=== PATIENT | female | born 1965 | race Caucasian/White ===

== ENCOUNTER 2017-03-11 20:00 | Emergency (ER) | payer OTHER ==
[~2017-03-11] VITALS: Ht 160 cm; Wt 66.0 kg
[~2017-03-11 20:00] MED LIST: LISI-363 PO; METO25TA6 PO; NAPR500 PO; ROBA750T3 PO; Z.0.BCPILL PO; ZOCO20TA PO
[2017-03-11] MEDS ORDERED: SODIUM CHLORIDE 0.9% FLUSH 10 ML FLUSH IVF PRN (20:15)
[2017-03-11] MEDS ORDERED: SODIUM CHLOR 0.9% 1000 ML INJ 1,000 ML IV SCH (20:15)
[2017-03-11 20:19] VITALS: BP 134/99; PULSE 82; RESP 18; TEMP 98.7; O2SAT 100
[2017-03-11 20:21] VITALS: RESP 18; O2SAT 100
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
[2017-03-11 20:49] LABS: AUTOMATED NEUTROPHIL # 7.1 TH/MM3 (1.8-7.7); BASOPHIL # 0.1 TH/MM3 (0-0.2); BASOPHIL % 0.7 % (0.0-2.0); EOSINOPHIL # 0.4 TH/MM3 (0-0.4); EOSINOPHIL % 3.5 % (0.0-4.0); HEMATOCRIT 38.8 % (35.0-46.0); HEMO FLAGS DIFF FINAL; LYMPH % 32.1 % (9.0-44.0); MEAN CELL VOLUME 79.5 FL (80.0-100.0); MEAN CORPUSCULAR HEMOGLOBIN 26.2 PG (27.0-34.0); MEAN CORPUSCULAR HGB CONC 32.9 % (32.0-36.0); MONO % 6.6 % (0.0-8.0); NEUT % 57.1 % (16.0-70.0); PLATELET COUNT 311 TH/MM3 (150-450); RED BLOOD COUNT 4.88 MIL/MM3 (4.00-5.30); RED CELL DISTRIBUTION WIDTH 13.9 % (11.6-17.2); WHITE BLOOD COUNT 12.4 TH/MM3 (4.0-11.0)
[2017-03-11 21:09] LABS: APTT (PATIENT) 22.8 SEC (24.3-30.1); PROTHROMBIN TIME - PATIENT 10.5 SEC (9.8-11.6)
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
[2017-03-11] MEDS ORDERED: ONDANSETRON HCL 4 MG/2 ML VIAL IV PUSH ONE (21:45)
[2017-03-11] MEDS ORDERED: MORPHINE SULFATE 2 MG/ML INJ IV PUSH ONE (21:45)
[2017-03-11 22:22] LABS: ANION GAP 8 MEQ/L (5-15); BICARBONATE 26.8 MEQ/L (21.0-32.0); BLOOD UREA NITROGEN 18 MG/DL (7-18); CHLORIDE 105 MEQ/L (98-107); GLOMERULAR FILTRATION RATE 93 ML/MIN (>89); POTASSIUM 3.8 MEQ/L (3.5-5.1); SODIUM (NA) 140 MEQ/L (136-145)
[2017-03-11] MEDS ORDERED: MORPHINE SULFATE 4 MG/ML INJ IV PUSH ONE (22:30)
[2017-03-11 22:33] LABS: ALCOHOL LESS THAN 3 MG/DL (0-5)
[2017-03-11 23:00] VITALS: BP 133/69; PULSE 69; RESP 17; O2SAT 99
[2017-03-11] MEDS ORDERED: IOHEXOL 350 MG/ML 10 ML VIAL (for RAD DIAG) IVCONTRAST ONE (23:49)
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
[2017-03-12 01:00] VITALS: BP 140/77; PULSE 65; RESP 19; O2SAT 98
[2017-03-12] MEDS ORDERED: PERC5TAB12 PO (01:20)
[2017-03-12] MEDS ORDERED: ZOFR4TAB3 SL (01:20)
[2017-03-12] MEDS ORDERED: IBUP-232 PO (01:20)
== END 2017-03-12 01:40 | disposition home or self-care (01) ==
LOC: NEPC 20:00
DX: M54.5 Low back pain (principal); S09.8XXA Other specified injuries of head, initial encounter; S16.1XXA Strain of muscle, fascia and tendon at neck level, initial encounter; T14.8XXA Other injury of unspecified body region, initial encounter; S50.312A Abrasion of left elbow, initial encounter; R10.2 Pelvic and perineal pain; M79.661 Pain in right lower leg; M79.662 Pain in left lower leg; V29.88XA Motorcycle rider (driver) (passenger) injured in other specified transport accidents, initial encounter; E11.9 Type 2 diabetes mellitus without complications; I10 Essential (primary) hypertension; E78.00 Pure hypercholesterolemia, unspecified
CPT/HCPCS: 70450; 71010; 72125; 72128; 72131; 72170; 73080; 74177; 80048; 80307; 85025; 85610; 85730; 86850; 86900; 86901; 96361; 96374; 96375; 96376; 99285; J2270; J2405; J7030; Q9967